=== PATIENT | male | born 1940 | race Two or more races ===

== ENCOUNTER 2019-01-24 13:40 | Outpatient (CLI) | payer OTHER ==
[~2019-01-24 13:40] MED LIST: NABUMETONE500 MG PO; PERCOCET 5/3251 TAB PO
== END 2019-01-24 13:57 | disposition home or self-care (01) ==
LOC: LAB 13:40
DX: D50.0 Iron deficiency anemia secondary to blood loss (chronic) (principal); R19.5 Other fecal abnormalities; I73.89 Other specified peripheral vascular diseases; I10 Essential (primary) hypertension; E08.65 Diabetes mellitus due to underlying condition with hyperglycemia; N41.8 Other inflammatory diseases of prostate; E03.8 Other specified hypothyroidism; K29.70 Gastritis, unspecified, without bleeding; M1A.09X0 Idiopathic chronic gout, multiple sites, without tophus (tophi); D50.8 Other iron deficiency anemias; D51.8 Other vitamin B12 deficiency anemias; D55.0 Anemia due to glucose-6-phosphate dehydrogenase [G6PD] deficiency; D51.1 Vitamin B12 deficiency anemia due to selective vitamin B12 malabsorption with proteinuria; D51.0 Vitamin B12 deficiency anemia due to intrinsic factor deficiency; R97.0 Elevated carcinoembryonic antigen [CEA]; R97.8 Other abnormal tumor markers

== ENCOUNTER → 2020-07-07 | Outpatient (CLI) | payer OTHER | END | disposition home or self-care (01) | LOC: OFIC 805 11:00 | PROVIDERS: ATTEND Otolaryngology | DX: H90.3 Sensorineural hearing loss, bilateral (principal); H61.23 Impacted cerumen, bilateral; H68.103 Unspecified obstruction of Eustachian tube, bilateral ==

== ENCOUNTER 2021-06-16 20:51 | Emergency (ER) | payer OTHER ==
[~2021-06-16] VITALS: Ht 170.2 cm; Wt 88.9 kg
[2021-06-16] MEDS ORDERED: DUTASTERIDE 0.5 MG (21:05)
[2021-06-16] MEDS ORDERED: AMLODIPINE-OLM1 EACH (21:06)
[2021-06-16] MEDS ORDERED: HYDROCHLOROTH12.5 MG (21:07)
[2021-06-16] MEDS ORDERED: VASOFLEX TABLE1 EACH (21:08)
[2021-06-16] MEDS ORDERED: SYNTHROID75 MCG (21:08)
[2021-06-16] MEDS ORDERED: JANUMET XR 50-1 EAC1 (21:09)
[2021-06-16] MEDS ORDERED: PROTONIX40 MG (21:09)
[2021-06-16] MEDS ORDERED: NAMENDA10 MG (21:10)
[2021-06-16] MEDS ORDERED: GLIPIZIDE XL10 MG (21:10)
[2021-06-16] MEDS ORDERED: [UNRECOGNIZED DRUG - OTHER] (21:11)
[2021-06-16] MEDS ORDERED: NEURIN (21:12)
[2021-06-16] MEDS ORDERED: IRBESARTAN-HCT1 EAC1 (21:13)
== END 2021-06-17 08:36 | disposition designated cancer center or children's hospital (05) ==
LOC: ER 20:51 → CPU-OBS 23:28 → ER 23:28
DX: I21.4 Non-ST elevation (NSTEMI) myocardial infarction (principal)

== ENCOUNTER 2022-02-09 10:49 | Emergency (ER) | payer OTHER ==
[~2022-02-09] VITALS: Ht 162.6 cm; Wt 84.8 kg
[~2022-02-09 10:49] MED LIST changes: +AMLODIPINE-OLM1 EACH; +DUTASTERIDE 0.5 MG; +GLIPIZIDE XL10 MG; +HYDROCHLOROTH12.5 MG; +IRBESARTAN-HCT1 EAC1; +JANUMET XR 50-1 EAC1; +NAMENDA10 MG; +NEURIN; +PROTONIX40 MG; +SYNTHROID75 MCG; +VASOFLEX TABLE1 EACH; +[UNRECOGNIZED DRUG - OTHER]
== END 2022-02-09 15:22 | disposition home or self-care (01) ==
LOC: ER 10:49
DX: K59.00 Constipation, unspecified (principal)

== ENCOUNTER 2022-02-15 11:02 | Inpatient (IN) | payer OTHER ==
[~2022-02-15] VITALS: Ht 162.6 cm; Wt 83.5 kg
--- NOTE | 2022-02-15 11:33 | NUR ---
PACIENTE ALERTA Y ORIENTADO REFIERE QUE FUE REFERIDO A LUIS ARMANDO DE EMERGENCIAS POR DR BYERS POR OBSTRUCION DEL INTESTINO. PACIENTE REFIERE UN POCO DE MALESTAR EN AREA PELVICA. SE MONITOREAN S/V Y SE UBICA EN OBSERVACION.
--- NOTE | 2022-02-15 12:15 | NUR ---
SE LE ORIENTA A PACIENTE SOBRE LAS ORDENES MEDICAS, REFIERE ENTEDER LAS MISMAS. SE CANALIZA Y SE LE COLOCA LOS IVF'S, SE LE JAMES LAS MUETRAS DE JOCELINE, SE LE ADMINISTRAN LOS MEDICAMENTOS Y SE LE REALIZA CT ABDOMINAL ELEANOR LAS ORDENES MEDICAS.
== END 2022-03-02 17:23 | disposition home or self-care (01) | DRG 330 ==
LOC: ER 11:02 → MEDJ 13:31 → SEC-K 13:31 → MEDJ 19:26 → SURG 02-23 23:19
PROVIDERS: Surgery; ADMIT Internal Medicine; ATTEND Internal Medicine
PROC: B24BZZZ Ultrasonography of Heart with Aorta (ICD-10-PCS; 2022-02-15)
PROC: BW21ZZZ Computerized Tomography (CT Scan) of Abdomen and Pelvis (ICD-10-PCS; 2022-02-15)
PROC: 0DBN8ZX Excision of Sigmoid Colon, Via Natural or Artificial Opening Endoscopic, Diagnostic (ICD-10-PCS; 2022-02-20)
PROC: 0DBU4ZZ Excision of Omentum, Percutaneous Endoscopic Approach (ICD-10-PCS; 2022-02-23)
PROC: 0D1L4Z4 Bypass Transverse Colon to Cutaneous, Percutaneous Endoscopic Approach (ICD-10-PCS; principal; 2022-02-23 16:00)
DX: K56.690 Other partial intestinal obstruction (principal); C18.7 Malignant neoplasm of sigmoid colon; C78.6 Secondary malignant neoplasm of retroperitoneum and peritoneum; J90 Pleural effusion, not elsewhere classified; K59.09 Other constipation; K57.30 Diverticulosis of large intestine without perforation or abscess without bleeding; E11.9 Type 2 diabetes mellitus without complications; Z79.4 Long term (current) use of insulin; I10 Essential (primary) hypertension; Z20.822 Contact with and (suspected) exposure to COVID-19; E03.8 Other specified hypothyroidism; I25.10 Atherosclerotic heart disease of native coronary artery without angina pectoris; D50.0 Iron deficiency anemia secondary to blood loss (chronic)

== ENCOUNTER → 2022-04-11 08:00 | Outpatient (CLI) | payer OTHER ==
[~2022-04-11] VITALS: Ht 162.6 cm; Wt 72.6 kg
[~2022-04-11 08:00] MED LIST changes: +COZAAR100 MG PO; +TOPROL XL25 M1 PO
== END | disposition home or self-care (01) ==
LOC: LAB 08:00 → ADM 11:15 → CIR.AMB 04-13 11:15 → EDSTATUS 04-24 11:15
PROVIDERS: ATTEND Surgery
DX: K40.90 Unilateral inguinal hernia, without obstruction or gangrene, not specified as recurrent (principal); I10 Essential (primary) hypertension; K92.1 Melena; C18.5 Malignant neoplasm of splenic flexure; C18.7 Malignant neoplasm of sigmoid colon; C80.0 Disseminated malignant neoplasm, unspecified; Z20.828 Contact with and (suspected) exposure to other viral communicable diseases; Z01.812 Encounter for preprocedural laboratory examination